=== PATIENT | male | born 1995 | race Two or more races ===

== ENCOUNTER 2017-07-17 17:27 | Emergency (ER) | payer OTHER ==
[~2017-07-17] VITALS: Ht 172.7 cm; Wt 65.8 kg
[~2017-07-17 17:27] MED LIST: TRAMADOL HCL50 MG ORAL
[2017-07-17] MEDS ORDERED: ROBAXIN-750750 MG PO (18:07)
[2017-07-17] MEDS ORDERED: IBUPROFEN600 MG ORAL (18:07)
[2017-07-17 18:15] VITALS: BP 110/70
--- NOTE | 2017-07-17 19:49 | Emergency Room Report ---
History of Present Illness General Chief Complaint: Upper Respiratory Illness Source: Patient Present Illness HPI The patient is a [id number] male presenting for left hand and forearm pain. He states that this has been ongoing for the past month. 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 He denies any injury. Pain is a 7/10 dull ache forearm. Pain is better with rest and worse when he works. He denies other symptoms including rash, numbness or tingling Allergies: Coded Allergies: HYDROCODONE (Unverified Allergy, Unknown, 02/11/15) Patient History Past Medical History: see triage record Pertinent Family History: none Reviewed Nursing Documentation: PMH: Agreed, PSxH: Agreed Nursing Documentation-PMH Past Medical History: No Stated History Review of Systems All Other Systems: negative except mentioned in HPI Physical Exam Vital Signs Date Time Temp Pulse Resp B/P (MAP) Pulse Ox O2 Delivery O2 Flow Rate FiO2 07/17/17 17:40 98.0 82 16 110/70 98 Room Air 98.1 Sp02 EP Interpretation: reviewed, normal General Appearance: no apparent distress, alert, GCS 15, non-toxic Head: normocephalic, atraumatic Eyes: bilateral eye normal inspection, bilateral eye PERRL ENT: hearing grossly normal, normal pharynx, no angioedema, normal voice Musculoskeletal: normal range of motion, tender - ulnar side of L forearm. Ventral surface Neurologic: alert, oriented x3, responsive, motor strength/tone normal, sensory intact, speech normal Psychiatric: judgement/insight normal, memory normal, mood/affect normal, no suicidal/homicidal ideation Skin: normal color, no rash, warm/dry, well hydrated Medical Decision Making PA Attestation Dr. Agarwal is my supervising physician. Patient management was discussed with my supervising physician Diagnostic Impression: Primary Impression: Strain of forearm, left Qualified Codes: S56.912A - Strain of unspecified muscles, fascia and tendons at forearm level, left arm, initial encounter ER Course The patient is a [id number] male presenting for left hand and forearm pain Ddx considered include but not limited to sprain/strain, fracture, contusion, dupuytren's contracture, compartment syndrome, among others PE: vitals WNL. NAD TTP to ulnar side of L forearm ventral surface. FulL AROM intact. Telecommunications Engineer strength 5/5. No deformity. The patient will be discharged with prescription for Motrin and Robaxin. He is given instructions for massage of the forearm and is given limited time off of work in order to rest. He will follow up with primary doctor. ER precautions are given Last Vital Signs Date Time Temp Pulse Resp B/P (MAP) Pulse Ox O2 Delivery O2 Flow Rate FiO2 07/17/17 18:15 98.0 16 110/70 98 Room Air 98.1 07/17/17 17:50 82 Status: improved Disposition: HOME, SELF-CARE Condition: Improved Scripts Methocarbamol* (ROBAXIN-750*) 750 Mg Tablet 750 MG PO TID, #21 TAB 0 Refills Prov: CLAUDIA CARO.AAnnita 07/17/17 Ibuprofen* (MOTRIN*) 600 Mg Tablet 600 MG ORAL Q8H Y for For Pain, #30 TAB 0 Refills Prov: CLAUDIA CARO.A. 07/17/17 Referrals: TERENCE YOUGN,REFERRING (PCP) Patient Instructions: Muscle Strain Additional Instructions: I discussed my findings with the patient. All questions and concerns have been answered. Treatment and medication compliance have been addressed. I advised the patient that they need to follow up with PMD in 3-5 days. Return to ED if pain remains or worsens, numbness or tingling occurs, new rash is noticed, fever is noticed, or if needed for any reason. Patient verbalized understanding of discharge instructions. CLAUDIA CARO Jul 17, 2017 19:49
== END 2017-07-17 18:15 | disposition home or self-care (01) ==
LOC: EMR 18:01
DX: S66.912A Strain of unspecified muscle, fascia and tendon at wrist and hand level, left hand, initial encounter (principal); X50.9XXA Other and unspecified overexertion or strenuous movements or postures, initial encounter; Y92.89 Other specified places as the place of occurrence of the external cause
CPT/HCPCS: 99284